=== PATIENT | female | born 1940 | race Caucasian/White ===

== ENCOUNTER → 2016-07-10 15:09 | Outpatient (CLI) | payer MEDICARE, BC | END | disposition home or self-care (01) | LOC: D.MAMMO 10:00 | DX: Z12.31 Encounter for screening mammogram for malignant neoplasm of breast (principal) ==

== ENCOUNTER → 2016-08-14 15:56 | Outpatient (CLI) | payer MEDICARE, BC | END | disposition home or self-care (01) | LOC: D.MAMMO 10:00 | DX: R92.2 Inconclusive mammogram (principal) ==

== ENCOUNTER 2017-03-18 13:00 | Inpatient (IN) | payer MEDICARE, BC ==
[~2017-03-18] VITALS: Ht 157.5 cm; Wt 55.9 kg
[2017-03-18] MEDS ORDERED: LOVASTATIN10 MG PO (13:47)
[2017-03-18] MEDS ORDERED: CO Q-10100 MG PO (13:48)
[2017-03-18] MEDS ORDERED: CALCIUM 500 + D1 TAB PO (13:48)
[2017-03-18] MEDS ORDERED: TIROSINT13 MCG PO (13:48)
[2017-03-18] MEDS ORDERED: SYSTANE 0.3-0.4%5 ML EACH EYE (13:49)
[2017-03-18] MEDS ORDERED: MULTIPLE VITAMI1 TA1 PO (13:50)
[2017-03-18 14:26] LABS: BASOPHILS 1.1 % (0-2); HEMATOCRIT 42.8 % (36.0-48.0); HEMOGLOBIN 13.9 g/dL (12-16); IMMATURE GRANULOCYTES 0.2 % (0-5); LYMPHOCYTES 27.5 % (15-50); MCHC 32.5 g/dL (31.0-37.0); MCV 86.1 fL (80.0-100.0); MEAN PLATELET VOLUME 10.4 fL (7.4-10.4); MONOCYTES 7.2 % (2-11); PLATELET COUNT 232 10x3/uL (130-400); RBC 4.97 10x6/uL (4.00-5.40); RDW 13.3 % (11.5-14.5); WBC 5.5 10x3/uL (4.8-10.8)
[2017-03-18 14:34] LABS: ANION GAP 12.3 mmol/L (8-16); CALCIUM 9.3 mg/dL (8.5-10.1); CARBON DIOXIDE 28.6 mmol/L (21.0-32.0); CREATININE - SERUM 0.8 mg/dL (0.6-1.3); POTASSIUM - SERUM 3.9 mmol/L (3.5-5.1)
[2017-03-22] VITALS (19 sets, daily range): BP systolic 98–127; BP diastolic 47–70; Ht 157.5 cm; Wt 55.9 kg
[2017-03-23 03:50] VITALS: BP 111/53
[2017-03-23 05:49] LABS: HEMATOCRIT 36.2 % (36.0-48.0); HEMOGLOBIN 11.7 g/dL (12-16); MCH 27.9 pg (26.0-34.0); MCHC 32.3 g/dL (31.0-37.0); MCV 86.2 fL (80.0-100.0); MEAN PLATELET VOLUME 10.1 fL (7.4-10.4); RBC 4.2 10x6/uL (4.00-5.40); RDW 13.4 % (11.5-14.5); WBC 8.6 10x3/uL (4.8-10.8)
[2017-03-23 07:06] VITALS: BP 120/59
--- NOTE | 2017-03-23 09:02 | OP ---
PATIENT NAME: JOHN MARIE MEDICAL RECORD: [id number] :42 LOCATION:[facility] D.1274 ADMISSION DATE:03/22/17 SURGEON: JESUS LANDEROS MD DATE OF OPERATION: 03/22/2017 PREOPERATIVE DIAGNOSIS: Pelvic organ prolapse. POSTOPERATIVE DIAGNOSIS: Pelvic organ prolapse. PROCEDURES: 1. Transvaginal hysterectomy. 2. Anterior colporrhaphy. SURGEON: Jesus Landeros MD TEST DIRECTOR: Crystal Jj. ANESTHESIOLOGIST: Terry Mcqueen MD ANESTHESIA: General. FINDINGS: A third-degree cystocele identified. The mucosa is unremarkable. The uterus prolapse is second degree. Cystoscopy at the close of the procedure reveals no irregularities of the vaginal mucosa and no injury to the bladder sling. SPECIMENS REMOVED: 1. Uterus with left tube. 2. Vaginal mucosa. SPECIMEN DISPOSITION: Pathology. ESTIMATED BLOOD LOSS: Less than 325 cc. FLUIDS: 750 of lactated Ringer's. URINE OUTPUT: 200 cc of clear urine. COMPLICATIONS: None. DRAIN: Marroquin to gravity with vaginal packing. INDICATIONS: The patient is a 76-year-old female using pessary for cystocele and pelvic organ prolapse. The patient no longer desires use of pessary. The patient has consented for vaginal hysterectomy and anterior colporrhaphy with possible use of fascia graft. DESCRIPTION OF PROCEDURE: After informed consent was assured, the patient was taken to the operating room where anesthetic was obtained without difficulty. She was placed in candy-cane stirrups and prepped and draped in usual sterile fashion. Weighted speculum was introduced into the vagina. The cervix was grasped with Rosita tenaculum, was then placed on gentle traction. The mucosa overlying the cervix was now incised with Bovie cautery and a reverse chevron placed posteriorly. An opening was now created in the posterior cul-de-sac with Vyas scissors. The peritoneum was tacked to the mucosa. The long-billed OPERATIVE REPORT [id number] JOHN MARIE weighted speculum was introduced and attention was directed anteriorly where the bladder pillars were freed and the mucosa was further mobilized over the anterior surface of the cervix and uterus. Meli clamps were now used to isolate the uterosacral ligaments on both right and left side. These pedicles developed sharply and a stitch applied. The anterior cul-de-sac was entered now and the remaining portion of the uterus was clamped, cut and tied until the specimen was freed. The left tube was falling down into the incision site and was removed along with the specimen. The ovaries were both palpated and appeared to be within normal limits. The cuff was now closed. The uterosacral ligaments were plicated in the midline and stick tied to the vaginal cuff ensuring apical support. The cuff was closed with interrupted Vicryl stitches in an anterior and posterior fashion. The cystocele was now addressed. Allis clamps placed approximately 2 cm below the urethral meatus and elevated. The apex of the defect was now grasped with Allis. The site was injected with 0.5% lidocaine mixture. After the hydrodissection was complete, a 15-blade used to open up the mucosa. Metzenbaum scissors and cotton wedge were used to mobilize the mucosa off the muscularis. Dissection was carried out laterally. The pubovesical fascia was identified. There was site-specific defect in the midline. The fascia was grasped on the right and left side with Allis clamps and placed on gentle traction. Horizontal mattress stitches were now applied in a posterior to anterior fashion. After placement of these stitches, they were tied in similar order. Cystocele was now been reduced and the excess mucosa removed. The defect remains closed in a horizontal manner. After closure of the anterior mucosal incision, the cystoscopy was performed. Cystoscope was inserted directly and the bladder visualized without trauma to the mucosa. There was no retraction of the bladder wall. The Marroquin catheter was now placed and vaginal packing applied. Sponge, lap and needle counts correct times 2. The patient was taken to the recovery room in stable condition. TRANSINT:[id number] Voice Confirmation ID: [id number] DOCUMENT ID: [id number] JESUS LANDEROS MD at 0902 CC: [id number] DICTATION DATE: 03/22/17 1013 CREDIT UNION TELLER: 03/22/17 1202 ADM IN [facility] [address] [id number]
[2017-03-23] MEDS ORDERED: HYDROCODON-ACE1 EAC7 PO (18:07)
--- NOTE | 2017-03-29 07:54 | DS ---
PATIENT:JOHN MARIE :42 MEDICAL RECORD: [id number] DISCHARGE SUMMARY ADMISSION DATE: 03/22/17 DISCHARGE DATE: 03/23/17 DATE OF ADMISSION: 03/22/2017. DATE OF DISCHARGE: 03/23/2017. ADMISSION DIAGNOSIS: Pelvic organ prolapse. DISCHARGE DIAGNOSIS: Pelvic organ prolapse. PROCEDURE: 1. Transvaginal hysterectomy. 2. Anterior colporrhaphy. ATTENDING PHYSICIAN: Dr. Landeros. HISTORY OF PRESENT ILLNESS: See the H&P in the chart. SUMMARY OF HOSPITALIZATION: The patient was admitted to the hospital and underwent procedure without incident. By postoperative day #1, she was tolerating regular diet, had flatus and was voiding without difficulty. The patient has been given the standard postoperative precautions. The patient has assistance at home to observe lifting and Valsalva limitations. I have discussed with the patient the side effects of the postop pain medications of constipation and she will be proactive in treating that with MiraLax or stool softener. The patient will follow up in 2 weeks at [facility]. TRANSINT:[id number] Voice Confirmation ID: [id number] DOCUMENT ID: [id number] MOHAN LANDEROS MD at 0754 CC: [id number] DICTATION DATE: 03/23/17 180 PHONOGRAPH NEEDLE TIP MAKER: 03/24/17 1047 DIS IN 03/23/17 [facility] [address] [place] [address]
== END 2017-03-23 18:25 | disposition home or self-care (01) | DRG 743 ==
LOC: D.LD 03-22 05:09 → D.SDCHOLD 03-22 05:09 → D.LD 03-22 10:41
PROVIDERS: ADMIT Obstetrics & Gynecology
PROC: 0UT97ZZ Resection of Uterus, Via Natural or Artificial Opening (ICD-10-PCS; principal; 2017-03-22 09:00)
PROC: 0JQC0ZZ Repair Pelvic Region Subcutaneous Tissue and Fascia, Open Approach (ICD-10-PCS; 2017-03-22 09:00)
DX: N81.2 Incomplete uterovaginal prolapse (principal)

== ENCOUNTER 2017-08-17 14:52 | Outpatient (CLI) | payer MEDICARE, BC ==
[2017-03-22 11:47] VITALS: BMI 22.5
[~2017-08-17 14:52] MED LIST: CALCIUM 500 + D1 TAB PO; CO Q-10100 MG PO; HYDROCODON-ACE1 EAC7 PO; LOVASTATIN10 MG PO; MULTIPLE VITAMI1 TA1 PO; SYSTANE 0.3-0.4%5 ML EACH EYE; TIROSINT13 MCG PO
== END 2017-08-17 14:53 | disposition home or self-care (01) ==
LOC: D.MAMMO 14:52
DX: Z12.31 Encounter for screening mammogram for malignant neoplasm of breast (principal)

== ENCOUNTER → 2017-08-24 17:39 | Outpatient (CLI) | payer MEDICARE, BC ==
[2017-03-22 11:47] VITALS: BMI 22.5
== END | disposition home or self-care (01) ==
LOC: D.MAMMO 13:00
DX: R92.8 Other abnormal and inconclusive findings on diagnostic imaging of breast (principal)

== ENCOUNTER 2018-02-21 19:00 | Outpatient (CLI) | payer MEDICARE, BC ==
[2017-03-22 11:47] VITALS: BMI 22.5
== END 2018-02-21 23:59 | disposition home or self-care (01) ==
LOC: D.MAMMO 19:00
DX: R92.8 Other abnormal and inconclusive findings on diagnostic imaging of breast (principal)

== ENCOUNTER 2018-10-14 08:00 | Outpatient (CLI) | payer MEDICARE ==
[2017-03-22 11:47] VITALS: BMI 22.5
== END 2018-10-14 23:59 | disposition home or self-care (01) ==
LOC: D.MAMMO 08:00
PROVIDERS: ATTEND Obstetrics & Gynecology
DX: Z12.31 Encounter for screening mammogram for malignant neoplasm of breast (principal)

== ENCOUNTER 2020-02-01 14:30 | Outpatient (CLI) | payer MEDICARE ==
[2017-03-22 11:47] VITALS: BMI 22.5
== END 2020-02-01 15:00 | disposition home or self-care (01) ==
LOC: D.MAMMO 14:30
PROVIDERS: ATTEND Family Medicine
DX: Z12.31 Encounter for screening mammogram for malignant neoplasm of breast (principal)